=== PATIENT | female | born 1950 | race Caucasian/White ===

== ENCOUNTER → 2018-07-14 | Outpatient (CLI) | payer OTHER ==
[~2018-07-14] MED LIST: DOCU-416 PO; LEVO-3 PO; LEVO-85 PO; LOSA50TA80 PO; ONDA4TAB PO; OXYC-865 PO; PROG100C PO; PROG200C PO; ROBC PO; SPIR100T33 PO; [UNRECOGNIZED DRUG - REMARK]
--- NOTE | 2018-07-14 14:24 | RADIOLOGY IMAGING REPORT ---
FACILITY: [facility] PATIENT NAME: Sara De La O : 1950 MR: [id number] V: [id number] EXAM DATE: ORDERING PHYSICIAN: BOBY BRADY TECHNOLOGIST: Location: [facility] Patient: Sara De La O : 1950 Visit/Account:[id number] Date of Sevice: 07/14/2018 Exam type: CHEST PA LAT History: Shortness of breath Comparison: September 14, 2015. Findings: The lungs are free of acute effusions, infiltrates or edema. No evidence of a pneumothorax or pneumo mediastinum The cardiac silhouette is mildly enlarged. There is mild ectasia the thoracic aorta. T here are minimal spondylotic changes of the thoracic spine. IMPRESSION: 1. No evidence of acute pulmonary consolidation Cardiac silhouette is mildly enlarged although no evidence of overt pulmonary edema Report Dictated By: Michelle Clancy MD at 07/14/2018 2:18 PM Report E-Signed By: Michelle Clancy MD at 07/14/2018 2:20 PM WSN:[email or web address]
== END ==
LOC: RAD 12:11
PROVIDERS: ATTEND Family Medicine
DX: R06.02 Shortness of breath (principal)
CPT/HCPCS: 71046

== ENCOUNTER → 2018-07-22 | Outpatient (CLI) | payer OTHER ==
--- NOTE | 2018-07-22 14:20 | RADIOLOGY IMAGING REPORT ---
FACILITY: [facility] PATIENT NAME: FALLON BUI : [id number] MR: [id number] V: [id number] EXAM DATE: [id number] ORDERING PHYSICIAN: BOBY BRADY TECHNOLOGIST: Juayn Shankar PROCEDURE:BILATERAL DIGITAL SCREENING MAMMOGRAM WITH CAD ASSISTED INTERPRETATION & 3D TOMOSYNTHESIS COMPARISON:Prior mammograms 02/17/13. INDICATIONS:SCREENING FINDINGS: The breasts are heterogeneously dense which can obscure small masses. The parenchymal pattern has remained stable allowing for difference in mammographic technique & patient positioning. DIAGNOSTIC CATEGORY 1--NEGATIVE. RECOMMENDATIONS: ROUTINE MAMMOGRAM AND CLINICAL EVALUATION. IMPRESSION: BIRADS 1: Negative. No significant abnormality is seen. Dictated by: Michelle Clancy M.D. on 07/22/2018 at 8:37 Transcribed by: ARABELLA on 07/22/2018 at 10:18 Approved by: Michelle Clancy M.D. on 07/22/2018 at 14:19 [facility]
== END ==
LOC: MAMO 00:31
PROVIDERS: ATTEND Family Medicine
DX: Z12.31 Encounter for screening mammogram for malignant neoplasm of breast (principal)
CPT/HCPCS: 77063; 77067

== ENCOUNTER → 2018-08-05 | Outpatient (CLI) | payer OTHER | LOC: RESP 01:30 | PROVIDERS: ATTEND Family Medicine | DX: J98.4 Other disorders of lung (principal) | CPT/HCPCS: 94060; 94726; 94729 ==